=== PATIENT | male | born 1970 | race Caucasian/White ===

== ENCOUNTER 2025-01-21 03:44 | Inpatient (IN) | payer OTHER ==
[~2025-01-21] VITALS: Ht 167.6 cm; Wt 77.8 kg
[2025-01-21 04:26] LABS: PLATELET COUNT (AUTO) 250 K/uL (150-450); RED BLOOD CELL COUNT(AUTO) 4.00 MIL/uL (4.50-5.90); RED CELL DISTRIBUTION WIDTH 15.0 % (11.5-14.5); WHITE BLOOD COUNT (AUTO) 8.4 K/uL (4.5-11.0)
[2025-01-21 04:34] LABS: CALCIUM, TOTAL 8.6 mg/dL (8.8-10.5); CREATININE 0.86 mg/dL (0.60-1.30); GLOMERULAR FILTR. RATE CALC > 60 mL/min (>60); GLUCOSE,RANDOM 126 mg/dL (70-110); SODIUM SERUM 139 mmol/L (136-145); UREA NITROGEN, BLOOD 19 mg/dL (7-18)
[2025-01-21 04:48] LABS: TROPONIN I-HIGH SENSITIVITY 124 ng/L (<76)
[2025-01-21 05:01] LABS: CREATINE KINASE, TOTAL ONLY 150 U/L (39-308)
[2025-01-21] MEDS: NITROGLYCERIN 2% (1 GM=INCH) OINTMENT PACKET TP ONE (05:25)
[2025-01-21] MEDS: FUROSEMIDE 20 MG/2 ML VIAL IVP ONE (05:25)
[2025-01-21] MEDS ORDERED: ONDANSETRON HCL 4 MG/2 ML VIAL IVP PRN (05:30)
[2025-01-21] MEDS ORDERED: ACETAMINOPHEN 325 MG TABLET PO PRN (05:30)
[2025-01-21 05:42] LABS: COVID AG,FIA SOURCE NASAL SWAB
[2025-01-21 05:52] LABS: ALCOHOL, URINE DRUG SCREEN NEGATIVE (NEGATIVE); AMPHET/METH SCREEN,URINE POSITIVE (NEGATIVE); BARBITURATE SCREEN, URINE NEGATIVE (NEGATIVE); CANNABINOID SCREEN,URINE NEGATIVE (NEGATIVE); COCAINE SCREEN,URINE NEGATIVE (NEGATIVE); METHADONE SCREEN, URINE NEGATIVE (NEGATIVE)
[2025-01-21 05:53] LABS: PH,URINE DRUG SCREEN 5.5 (5.0-8.0)
[2025-01-21 05:54] LABS: APPEARANCE,URINE CLEAR (CLEAR); GLUCOSE, URINE (UA) NEGATIVE (NEGATIVE); LEUKOCYTE ESTERASE ,URINE NEGATIVE (NEGATIVE); NITRATE,URINE NEGATIVE (NEGATIVE); OCCULT BLOOD,URINE TRACE (NEGATIVE); SPECIFIC GRAVITIY, URINE 1.018 (1.003-1.030)
[2025-01-21 05:55] LABS: SARS-COV2 (COVID) ANTIGEN,FIA Negative (Negative)
[2025-01-21 05:56] LABS: INFLUENZA TYPE A NEGATIVE FOR TYPE A (NEGATIVE); INFLUENZA TYPE B NEGATIVE FOR TYPE B (NEGATIVE)
[2025-01-21 06:03] LABS: SQUAMOUS EPITHELIAL CELL,UR Few /LPF (None Seen)
[2025-01-21 07:24] LABS: TROPONIN I-HIGH SENSITIVITY 130 ng/L (<76)
[2025-01-21] MEDS: HEPARIN SODIUM,PORCINE 5,000 UNITS/ML VIAL SQ SCH (07:26)
[2025-01-21] MEDS: DOCUSATE SODIUM 100 MG CAPSULE PO SCH (09:00)
[2025-01-21] MEDS: FAMOTIDINE 20 MG TABLET PO SCH (09:00)
[2025-01-21] MEDS: FUROSEMIDE 20 MG/2 ML VIAL IVP SCH (09:22)
[2025-01-21 16:50] VITALS: BP 150/115; PULSE 92; RESP 20; TEMP 97.5; O2SAT 97
[2025-01-21 19:30] VITALS: BP 154/119; PULSE 108; RESP 18; TEMP 98.6; O2SAT 96
[2025-01-21 23:50] VITALS: BP 139/94; PULSE 112; RESP 18; O2SAT 95
[2025-01-22 04:05] VITALS: BP 149/104; PULSE 109; RESP 16; TEMP 97.9; O2SAT 95
[2025-01-22 06:19] LABS: PLATELET COUNT (AUTO) 333 K/uL (150-450); RED BLOOD CELL COUNT(AUTO) 4.78 MIL/uL (4.50-5.90); RED CELL DISTRIBUTION WIDTH 14.9 % (11.5-14.5); WHITE BLOOD COUNT (AUTO) 9.0 K/uL (4.5-11.0)
[2025-01-22 06:42] LABS: CALCIUM, TOTAL 8.9 mg/dL (8.8-10.5); CREATININE 0.80 mg/dL (0.60-1.30); GLOMERULAR FILTR. RATE CALC > 60 mL/min (>60); GLUCOSE,RANDOM 96 mg/dL (70-110); SODIUM SERUM 141 mmol/L (136-145); UREA NITROGEN, BLOOD 19 mg/dL (7-18)
[2025-01-22 08:31] VITALS: BP 165/115; PULSE 73; RESP 20; TEMP 97.5; O2SAT 95
[2025-01-22 10:49] VITALS: BP 132/90; PULSE 108; RESP 18; TEMP 97.9; O2SAT 97
[2025-01-22 15:59] VITALS: BP 114/90; PULSE 101; RESP 20; TEMP 97.7; O2SAT 96
[2025-01-22 20:20] VITALS: BP 113/91; PULSE 113; RESP 19; TEMP 97.9; O2SAT 94
[2025-01-22 23:53] VITALS: BP 138/96; PULSE 109; RESP 20; TEMP 98; O2SAT 98
[2025-01-23 05:19] VITALS: BP 134/98; PULSE 107; RESP 19; TEMP 98.4; O2SAT 97
[2025-01-23 07:58] VITALS: BP 135/89; PULSE 101; RESP 18; TEMP 98; O2SAT 98
[2025-01-23] MEDS: EMPAGLIFLOZIN 10 MG TABLET PO SCH (09:34)
[2025-01-23] MEDS: SPIRONOLACTONE 25 MG TABLET PO SCH (09:34)
[2025-01-23] MEDS: LOSARTAN POTASSIUM 25 MG TABLET PO SCH (09:36)
[2025-01-23 11:44] VITALS: BP 132/82; PULSE 98; RESP 18; TEMP 97.9; O2SAT 98
[2025-01-23] MEDS: FUROSEMIDE 20 MG TABLET PO SCH (12:44)
[2025-01-23 17:24] VITALS: BP 120/95; PULSE 100; RESP 18; TEMP 97.7; O2SAT 96
[2025-01-23] MEDS: AMIODARONE HCL 200 MG TABLET PO SCH (17:44)
[2025-01-23 18:08] LABS: PLATELET COUNT (AUTO) 410 K/uL (150-450); RED BLOOD CELL COUNT(AUTO) 5.27 MIL/uL (4.50-5.90); RED CELL DISTRIBUTION WIDTH 14.8 % (11.5-14.5); WHITE BLOOD COUNT (AUTO) 7.9 K/uL (4.5-11.0)
[2025-01-23 18:22] LABS: CALCIUM, TOTAL 9.4 mg/dL (8.8-10.5); CREATININE 0.81 mg/dL (0.60-1.30); GLOMERULAR FILTR. RATE CALC > 60 mL/min (>60); GLUCOSE,RANDOM 105 mg/dL (70-110); SODIUM SERUM 141 mmol/L (136-145); UREA NITROGEN, BLOOD 21 mg/dL (7-18)
[2025-01-23 18:25] LABS: TROPONIN I-HIGH SENSITIVITY 7434 ng/L (<76)
[2025-01-23] MEDS: ASPIRIN 81 MG DR TABLET PO SCH (19:23)
[2025-01-23] MEDS: ATORVASTATIN CALCIUM 40 MG TABLET PO SCH (19:23)
[2025-01-23 19:36] LABS: PLATELET COUNT (AUTO) 418 K/uL (150-450); RED BLOOD CELL COUNT(AUTO) 5.24 MIL/uL (4.50-5.90); RED CELL DISTRIBUTION WIDTH 14.7 % (11.5-14.5); WHITE BLOOD COUNT (AUTO) 7.8 K/uL (4.5-11.0)
[2025-01-23 20:08] VITALS: BP 128/103; PULSE 98; RESP 20; TEMP 97.5; O2SAT 98
[2025-01-23] MEDS: HEPARIN SODIUM,PORCINE 5,000 UNITS/ML VIAL IVP ONE (20:51)
[2025-01-23] MEDS: HEPARIN SODIUM 25000 UNITS/D5W 250 ML IV PRN (21:53)
[2025-01-24 00:54] VITALS: BP 128/102; PULSE 96; RESP 20; TEMP 97.7; O2SAT 98
[2025-01-24 02:30] VITALS: BP 113/89; PULSE 90; RESP 18; TEMP 98.1; O2SAT 100
[2025-01-24 05:13] VITALS: BP 120/90; PULSE 92; RESP 18; TEMP 98; O2SAT 100
[2025-01-24 05:35] LABS: PLATELET COUNT (AUTO) 422 K/uL (150-450); RED BLOOD CELL COUNT(AUTO) 5.21 MIL/uL (4.50-5.90); RED CELL DISTRIBUTION WIDTH 15.1 % (11.5-14.5); WHITE BLOOD COUNT (AUTO) 9.3 K/uL (4.5-11.0)
[2025-01-24 05:40] LABS: CHOL/HDL RATIO 8.2 (4.2-7.3); LDL CHOL (CALC.) 175.0 mg/dL (0-130)
[2025-01-24 05:41] LABS: ASPARTATE AMINOTRANSFERASE 44 U/L (15-37); CALCIUM, TOTAL 9.1 mg/dL (8.8-10.5); CREATININE 1.17 mg/dL (0.60-1.30); GLOMERULAR FILTR. RATE CALC > 60 mL/min (>60); GLUCOSE,RANDOM 127 mg/dL (70-110); SODIUM SERUM 142 mmol/L (136-145); TOTAL PROTEIN, SERUM 6.8 g/dL (6.4-8.2); UREA NITROGEN, BLOOD 29 mg/dL (7-18)
[2025-01-24] MEDS: HEPARIN SODIUM,PORCINE 5,000 UNITS/ML VIAL IVP PRN ×2 (06:13→14:08)
[2025-01-24 08:31] LABS: TROPONIN I-HIGH SENSITIVITY 6200 ng/L (<76)
[2025-01-24] MEDS: ZOLPIDEM TARTRATE 5 MG TABLET PO PRN (10:19)
[2025-01-24 12:07] VITALS: BP 110/87; PULSE 92; RESP 18; TEMP 97.5; O2SAT 96
[2025-01-24 16:25] VITALS: BP 109/68; PULSE 84; RESP 16; TEMP 97.8; O2SAT 100
[2025-01-24 19:22] VITALS: BP 122/79; PULSE 91; RESP 18; TEMP 98.1; O2SAT 95
[2025-01-25 00:38] VITALS: BP 120/83; PULSE 88; RESP 18; TEMP 97.7; O2SAT 97
[2025-01-25 15:57] VITALS: BP 110/76; PULSE 110; RESP 18; TEMP 98.4; O2SAT 98
[2025-01-25 19:17] VITALS: BP 124/77; PULSE 89; RESP 19; TEMP 98.2; O2SAT 98
[2025-01-26 01:01] VITALS: BP 123/84; PULSE 83; RESP 19; TEMP 97.5; O2SAT 97
[2025-01-26 06:39] VITALS: BP 129/76; PULSE 82; RESP 19; TEMP 97.9; O2SAT 97
[2025-01-26 08:18] VITALS: BP 121/88; PULSE 86; RESP 20; TEMP 97.5; O2SAT 96
[2025-01-26 10:59] LABS: PLATELET COUNT (AUTO) 394 K/uL (150-450); RED BLOOD CELL COUNT(AUTO) 4.93 MIL/uL (4.50-5.90); RED CELL DISTRIBUTION WIDTH 15.1 % (11.5-14.5); WHITE BLOOD COUNT (AUTO) 6.0 K/uL (4.5-11.0)
[2025-01-26 11:33] LABS: CALCIUM, TOTAL 8.6 mg/dL (8.8-10.5); CREATININE 1.05 mg/dL (0.60-1.30); GLOMERULAR FILTR. RATE CALC > 60 mL/min (>60); GLUCOSE,RANDOM 117 mg/dL (70-110); SODIUM SERUM 141 mmol/L (136-145); UREA NITROGEN, BLOOD 24 mg/dL (7-18)
[2025-01-26 11:53] VITALS: BP 128/89; PULSE 78; RESP 18; TEMP 97.5; O2SAT 96
[2025-01-26] MEDS ORDERED: HEPARIN SODIUM,PORCINE 5,000 UNITS/ML VIAL SQ SCH (16:00)
== END 2025-01-26 13:25 | disposition left against medical advice (07) | DRG 190 ==
LOC: EDBD 03:46 → EMS 03:46 → EDH 05:29 → 5S 16:28 → 5N 01-23 20:04
PROVIDERS: ADMIT Internal Medicine; ATTEND Internal Medicine
PROC: GZ58ZZZ Individual Psychotherapy, Cognitive-Behavioral (ICD-10-PCS; principal; 2025-01-26)
PROC: GZ56ZZZ Individual Psychotherapy, Supportive (ICD-10-PCS; 2025-01-26)
DX: I21.4 Non-ST elevation (NSTEMI) myocardial infarction (principal); E44.0 Moderate protein-calorie malnutrition; I50.23 Acute on chronic systolic (congestive) heart failure; I16.1 Hypertensive emergency; I47.20 Ventricular tachycardia, unspecified; I11.0 Hypertensive heart disease with heart failure; F15.10 Other stimulant abuse, uncomplicated; I42.9 Cardiomyopathy, unspecified; E78.5 Hyperlipidemia, unspecified; F41.9 Anxiety disorder, unspecified; Z20.822 Contact with and (suspected) exposure to COVID-19; I49.3 Ventricular premature depolarization; J45.909 Unspecified asthma, uncomplicated; Z87.891 Personal history of nicotine dependence; Z91.199 Patient's noncompliance with other medical treatment and regimen due to unspecified reason; Z79.899 Other long term (current) drug therapy
CPT/HCPCS: 71045; 80048; 80053; 80061; 80307; 81001; 82550; 83735; 83880; 84484; 85025; 85610; 85730; 87804; 93005; 93306; 97116; 97162; 97166; 97530; 99291; G0378; J1644; J1938; 36415-L1; 36415-TC